=== PATIENT | female | born 1980 | race Caucasian/White ===

== ENCOUNTER 2018-06-11 06:37 | Day surgery (SDC) | payer BC, OTHER ==
[2018-06-11] MEDS ORDERED: Ketorolac 30 MG/ML SDV IVPUSH ONE (06:38)
[2018-06-11] MEDS ORDERED: Propofol 200 MG/20 ML SDV IV ONE (06:38)
[2018-06-11] MEDS ORDERED: fentaNYL 100 MCG/2 ML SDV IV ONE (06:38)
[2018-06-11] MEDS ORDERED: Ondansetron 4 MG/2 ML SDV IV ONE (06:38)
[2018-06-11] MEDS ORDERED: Dexamethasone 4 MG/ML SDV IV ONE (06:38)
[2018-06-11] MEDS ORDERED: Scopolamine 1.5 MG Transdermal Patch TOP ONE (06:38)
[2018-06-11] MEDS ORDERED: Midazolam 1 MG/ML 2 ML SDV IV ONE (06:38)
[2018-06-11] MEDS ORDERED: Lactated Ringers 1,000 ML IV SCH ×2 (07:15→08:30)
[2018-06-11] MEDS ORDERED: Lidocaine 1% 30 ML SDV ONE (07:20)
[2018-06-11] MEDS ORDERED: Bupivacaine 0.5% 30 ML SDV ONE (07:20)
[2018-06-11] MEDS ORDERED: Scopolamine 1.5 MG Transdermal Patch TRDERM ONE (07:29)
[2018-06-11] MEDS ORDERED: Scopolamine 1.5 MG Transdermal Patch ONE (07:36)
[2018-06-11] MEDS ORDERED: ceFAZolin 2 GM in Premix Bag 1 BAG IV ONE (08:15)
[2018-06-11] MEDS ORDERED: Sodium Chloride 0.9% 10 ML Syringe FLUSH PRN ×2 (08:23)
[2018-06-11] MEDS ORDERED: Bupivacaine 0.5% 30 ML SDV INJECT ONE ×3 (08:40→09:48)
[2018-06-11] MEDS ORDERED: Lidocaine 1% 30 ML SDV INJECT ONE ×3 (08:40→09:48)
[2018-06-11] MEDS ORDERED: oxyCODONE 5 MG Tab PO PRN (10:03)
--- NOTE | 2018-06-11 10:08 | PCM.OPNOTE ---
- General Post-Op/Procedure Note Date of Surgery/Procedure: 06/11/18 Operative Procedure(s): left foot first metatarsal osteotomy/bunionectomy Pre Op Diagnosis: left foot painful bunion Post-Op Diagnosis: tiffanie Anesthesia Technique: Local, MAC Primary Surgeon: Rica Salcido Anesthesia Provider: Darryn Lombardo EBL in mLs: 5 Complications: none Condition: Good Free Text/Narrative:: Pt tolerated procedure well and was transported to recovery with vascular status intact to left foot. Viky 3.0 cannulated screws placed at osteotomy site. well padded compression dressing applied.
--- NOTE | 2018-06-11 13:01 | OR ---
DATE: 06/11/2018 PREOPERATIVE DIAGNOSIS: Left foot painful bunion deformity. POSTOPERATIVE DIAGNOSIS: Left foot painful bunion deformity. PROCEDURE PERFORMED: Left foot first metatarsal osteotomy/bunionectomy with hardware fixation. ANESTHESIA: Local MAC with preoperative local block of 10 mL 1:1 mixture of 1% lidocaine plain and 0.5% Marcaine plain. TOURNIQUET TIME: Pneumatic ankle tourniquet, 65 minutes. ESTIMATED BLOOD LOSS: Minimal. SPECIMEN: None. COMPLICATIONS: None. INDICATIONS: Carine is a 38-year-old female who presents with painful bunion on her left foot. This has been going on for many years and progressively worsening. She has tried inserts in her shoes, wider shoes, and activity modifications with no relief. She is now having to walk on the outside of her foot causing pain to the outside area to avoid pain to the bunion. She had her right foot bunion surgically corrected a few years ago and has been doing well with that. She would like surgical correction on the left foot today. 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 The patient voiced good understanding of the proposed procedure and possible complications, elects to have surgery at this time. DESCRIPTION OF THE PROCEDURE: The patient was taken to the operating room lying in supine position. After adequate anesthesia induction as described above, the left foot was prepped and draped in the usual sterile fashion. A pneumatic ankle tourniquet was inflated to 225 mmHg. Attention was then directed to the dorsal aspect of the first metatarsal of the left foot, where an approximately 5 cm linear incision was made. Sharp and blunt dissection was performed down to the level of the first metatarsophalangeal joint capsule with care to gently retract all neurovascular bundles. An inverted L-capsulotomy was made, and the capsule was reflected to expose the distal first metatarsal. A hypertrophic medial eminence was noted at this time and was resected with a sagittal saw. There was also noted to be a small chondral defect at the plantar lateral aspect that was drilled with a 0.062 K-wire. No other defects were present to the joint. The rest of the cartilage appeared healthy. Blunt dissection was performed in the interspace to the level of the fibular sesamoid, and a lateral release was performed. A sagittal saw was used to make a chevron-type osteotomy with a longer dorsal arm angulated in a fashion that would allow plantar displacement and maintenance of length with lateral transposition of the capital fragment. The capital fragment was transposed laterally, approximately 6 mm, and impacted to bring the hallux in a rectus alignment. A K-wire from the 3-0 [place] cannulated screw set was then used for a temporary fixation. Fluoroscopy was used to verify proper reduction of the deformity as well as proper fixation placement. Two partially-threaded cannulated [place] 3.0 screws were then placed across the osteotomy site. The temporary fixation was removed. The osteotomy site was noted to be stable with axial, valgus, and varus force applied with fluid range of motion of the first MTPJ. A final fluoroscopy picture was taken. Surgical site was flushed with copious amounts of sterile saline. A medial capsulorrhaphy was performed, and capsular closure was completed with 3-0 Vicryl. Skin closure was completed with 4-0 nylon. The hallux was noted to be in a near rectus alignment at this time. The area was then dressed with Xeroform to the incision site, fluffs, Webril, and an Leno wrap. She was then placed into a Cam boot, nonweightbearing. The patient tolerated the procedure well and left the operating room for recovery with vital signs stable in good condition with vascular status intact to the left foot as noted by immediate hyperemia to all digits upon deflation of the ankle tourniquet. The patient was then discharged to home when she met hospital discharge requirements. [facility] /[id number]
== END 2018-06-11 11:20 | disposition home or self-care (01) ==
LOC: DL.SDS 06:37
PROVIDERS: ATTEND Podiatrist
DX: M21.612 Bunion of left foot (principal); F41.9 Anxiety disorder, unspecified; F43.10 Post-traumatic stress disorder, unspecified; F17.210 Nicotine dependence, cigarettes, uncomplicated; Z79.899 Other long term (current) drug therapy; Z88.0 Allergy status to penicillin; Z88.6 Allergy status to analgesic agent
CPT/HCPCS: 28296; A9270; J0690; J1100; J1885; J2250; J2405; J2704; J3010; J3490; J7120

== ENCOUNTER 2022-04-10 13:16 | Emergency (ER) | payer BC, OTHER ==
[2022-04-10] MEDS ORDERED: Sodium Chloride 0.9% 10 ML Syringe FLUSH PRN (13:32)
[2022-04-10] MEDS: HYDROmorphone 1 MG/ML Syringe IVPUSH ONE (14:08)
[2022-04-10] MEDS: Ondansetron 4 MG/2 ML SDV IVPUSH ONE (14:08)
[2022-04-10 14:16] LABS: CHLORIDE,CL 104 mmol/L (98-107); SODIUM,NA 141 mmol/L (136-145)
[2022-04-10 14:18] LABS: ESTIMATED GFR 102 mL/min (>=60)
[2022-04-10] MEDS: Iopamidol 612 MG/ML 100 ML Bottle IVPUSH ONE (14:58)
== END 2022-04-10 15:23 | disposition home or self-care (01) ==
LOC: DL.ED 13:16
DX: R10.10 Upper abdominal pain, unspecified (principal); R11.2 Nausea with vomiting, unspecified; E66.9 Obesity, unspecified; Z68.30 Body mass index [BMI] 30.0-30.9, adult; Z88.0 Allergy status to penicillin; Z88.8 Allergy status to other drugs, medicaments and biological substances
CPT/HCPCS: 36415; 74177; 80053; 81003; 82150; 83605; 83690; 85025; 86140; 96374; 96375; 99284; J1170; J2405; Q9967

== ENCOUNTER 2022-04-30 06:24 | Day surgery (SDC) | payer BC ==
[2022-04-30] MEDS ORDERED: Ondansetron 4 MG/2 ML SDV IV ONE (06:25)
[2022-04-30] MEDS ORDERED: Propofol 200 MG/20 ML SDV IV ONE (06:25)
[2022-04-30] MEDS ORDERED: Sodium Chloride 0.9% 10 ML Syringe FLUSH PRN (07:58)
[2022-04-30] MEDS ORDERED: Dextrose 5%-0.45% NaCl 1,000 ML IV SCH (08:00)
[2022-04-30] MEDS ORDERED: Sodium Chloride 0.9% 10 ML Syringe FLUSH SCH (09:00)
== END 2022-04-30 09:50 | disposition home or self-care (01) ==
LOC: DL.ENDO 06:24
PROVIDERS: ATTEND Internal Medicine Gastroenterology
DX: K25.9 Gastric ulcer, unspecified as acute or chronic, without hemorrhage or perforation (principal); D72.829 Elevated white blood cell count, unspecified; F17.210 Nicotine dependence, cigarettes, uncomplicated; F41.1 Generalized anxiety disorder; F43.12 Post-traumatic stress disorder, chronic; Z88.0 Allergy status to penicillin; Z98.890 Other specified postprocedural states; Z88.6 Allergy status to analgesic agent; Z90.710 Acquired absence of both cervix and uterus; Z79.891 Long term (current) use of opiate analgesic; Z79.899 Other long term (current) drug therapy
CPT/HCPCS: 00731; 43239; 87077; J7042; J2405; J2704

== ENCOUNTER 2022-05-16 07:50 | Emergency (ER) | payer BC ==
[2022-05-16] MEDS ORDERED: Sodium Chloride 0.9% 10 ML Syringe FLUSH PRN (08:09)
[2022-05-16 08:52] LABS: ANION GAP 16.3 mEq/L (7-13); CHLORIDE,CL 104 mmol/L (98-107); SODIUM,NA 140 mmol/L (136-145)
[2022-05-16 08:54] LABS: ESTIMATED GFR 84 mL/min (>=60)
[2022-05-16] MEDS ORDERED: Iopamidol 755 Mg/ML 100 ML Bottle IVPUSH ONE (09:07)
== END 2022-05-16 11:59 | disposition home or self-care (01) ==
LOC: DL.ED 07:50
DX: R07.9 Chest pain, unspecified (principal); F17.210 Nicotine dependence, cigarettes, uncomplicated; E66.9 Obesity, unspecified; Z68.27 Body mass index [BMI] 27.0-27.9, adult; Z88.0 Allergy status to penicillin; Z88.6 Allergy status to analgesic agent; Z79.899 Other long term (current) drug therapy; Z86.16 Personal history of COVID-19; Z90.710 Acquired absence of both cervix and uterus; Z20.822 Contact with and (suspected) exposure to COVID-19
CPT/HCPCS: 36415; 71260; 80053; 81001; 83605; 83690; 83735; 83880; 84443; 84484; 85025; 85379; 86140; 93005; 99285; Q9967; U0002

== ENCOUNTER 2025-05-04 03:20 | Emergency (ER) | payer BC ==
[2025-05-04 04:50] LABS: BASOPHILS PERCENT AUTO 0.3 % (0.0-1.0); EOSINOPHILS PERCENT AUTO 0.9 % (1.0-3.0); LYMPHOCYTES PERCENT AUTO 19.3 % (20.5-50.1); MONOCYTES PERCENT AUTO 6.5 % (2-8); NEUTROPHILS PERCENT AUTO 73.0 % (42.2-75.2); PLATELET COUNT,PLT 332 10^3/uL (150-450); RED BLOOD CELL COUNT 4.25 10^6/uL (4.2-5.4); WHITE BLOOD CELL COUNT,WBC 12.0 10^3/uL (5.0-10.0)
[2025-05-04] MEDS: Ondansetron 4 MG/2 ML SDV IVPUSH ONE (04:58)
[2025-05-04 05:04] LABS: A/G RATIO 1.2; ALANINE AMINOTRANSFERASE,ALT 55 U/L (14-59); ASPARTATE AMNIOTRANSFERASE,AST 54 U/L (15-37); BILIRUBIN TOTAL 0.6 mg/dL (0.2-1.0); BLOOD UREA NITROGEN,BUN 10 mg/dL (7-18); CARBON DIOXIDE,CO2 29 mmol/L (21-32); CHLORIDE,CL 103 mmol/L (98-107); CREATININE 0.68 mg/dL (0.55-1.02); EST CRCL DRUG DOSING (CG) 95.99 mL/min; GLUCOSE RANDOM 118 mg/dL (70-99); POTASSIUM,K 3.4 mmol/L (3.5-5.1); PROTEIN TOTAL,TP 6.7 g/dL (6.4-8.2); SODIUM,NA 141 mmol/L (136-145)
[2025-05-04 05:05] LABS: ESTIMATED GFR 111 mL/min (>=60)
[2025-05-04 06:01] LABS: APPEARANCE,URINE CLEAR (CLEAR); GLUCOSE,URINE NEGATIVE (NEGATIVE); OCCULT BLOOD,URINE TRACE-INTACT (NEGATIVE)
[2025-05-04 06:03] LABS: AMPHETAMINES,URINE NEGATIVE (NEGATIVE); BARBITURATES,URINE NEGATIVE (NEGATIVE); MDMA (ECSTASY), URINE NEGATIVE (NEGATIVE); METHAMPHETAMINES,URINE NEGATIVE (NEGATIVE); OPIATES,URINE POSITIVE (NEGATIVE); OXYCODONE,URINE NEGATIVE (NEGATIVE); PHENCYCLIDINE,URINE NEGATIVE (NEGATIVE); TCA,URINE NEGATIVE (NEGATIVE)
[2025-05-04 06:17] LABS: EPITHELIAL CELLS,URINE FEW /HPF (NOT SEEN)
== END 2025-05-04 08:49 ==
LOC: DL.ED 03:20
DX: K81.9 Cholecystitis, unspecified (principal); K85.90 Acute pancreatitis without necrosis or infection, unspecified; K21.9 Gastro-esophageal reflux disease without esophagitis; E66.9 Obesity, unspecified; Z68.30 Body mass index [BMI] 30.0-30.9, adult; Z86.16 Personal history of COVID-19; Z90.710 Acquired absence of both cervix and uterus; Z88.0 Allergy status to penicillin; Z88.6 Allergy status to analgesic agent; Z79.899 Other long term (current) drug therapy
CPT/HCPCS: 36415; 74176; 80053; 80305; 81001; 81025; 83690; 85025; 96374; 96375; 99285; J0696; J2270; J2405; J7030